=== PATIENT | female | born 1990 | race American Indian/Alaskan Native ===

== ENCOUNTER 2017-01-19 21:20 | Emergency (ER) | payer BC, OTHER ==
[2017-01-19 21:55] VITALS: TEMP 98.7; BMI 30.4
--- NOTE | 2017-01-19 22:26 | ED PDOC ---
Arrival/HPI - General Chief Complaint: Abdominal Pain Time Seen by Provider: 01/19/17 22:14 Historian: Patient - History of Present Illness Narrative History of Present Illness (Text): 01/19/17 22:25 Javier Sepulveda is a 26 year old female, P:1, who presents to the emergency department complaining of occasional lower abdominal discomfort for the past few days. Patient states she wanted to see if she could possible be . Patient states her last normal menstrual period was 1 month prior. Patient denies any nausea, vomiting, diarrhea, vaginal bleeding, or vaginal discharge. Patient reports some urinary frequency and denies any discomfort at this time. Time/Duration: Other (few days) Symptom Onset: Gradual Symptom Course: Intermittent Severity Level: Mild Activities at Onset: Rest, Light Context: Home Past Medical History - Provider Review Nursing Documentation Reviewed: Yes - Infectious Disease Hx of Infectious Diseases: None - Tetanus Immunization Tetanus Immunization: Unknown - Psychiatric Hx Substance Use: No - Anesthesia Hx Anesthesia: No Family/Social History - Physician Review Nursing Documentation Reviewed: Yes Family/Social History: No Known Family HX Smoking Status: Never Smoked Hx Alcohol Use: No Hx Substance Use: No Allergies/Home Meds Allergies/Adverse Reactions: Allergies No Known Allergies Allergy (Verified 01/19/17 21:57) Home Medications: Home Meds Medication Instructions Recorded Confirmed RX: Unobtainable 10/31/16 10/31/16 Review of Systems - Physician Review All systems were reviewed & negative as marked: Yes - Review of Systems Constitutional: Normal. absent: Fevers Eyes: Normal ENT: Normal Respiratory: Normal. absent: SOB, Cough Cardiovascular: Normal. absent: Chest Pain Gastrointestinal: Abdominal Pain. absent: Diarrhea, Nausea, Vomiting Genitourinary Female: Frequency. absent: Dysuria, Hematuria, Urine Output Changes Musculoskeletal: Normal. absent: Back Pain, Neck Pain Skin: Normal. absent: Rash Neurological: Normal. absent: Headache, Dizziness Endocrine: Normal Hemo/Lymphatic: Normal Psychiatric: Normal Physical Exam Vital Signs Reviewed: Yes Vital Signs Temp Pulse Resp BP Pulse Ox 01/20/17 01:21 64 16 125/91 H 99 01/19/17 23:11 68 20 117/76 100 01/19/17 21:55 98.7 F 72 18 133/85 100 Temperature: Afebrile Blood Pressure: Normal Pulse: Regular Respiratory Rate: Normal Appearance: Positive for: Well-Appearing, Non-Toxic, Comfortable Pain Distress: None Mental Status: Positive for: Alert and Oriented X 3 - Systems Exam Head: Present: Atraumatic, Normocephalic Pupils: Present: PERRL Extroacular Muscles: Present: EOMI Conjunctiva: Present: Normal Mouth: Present: Moist Mucous Membranes Neck: Present: Normal Range of Motion Respiratory/Chest: Present: Clear to Auscultation, Good Air Exchange. No: Respiratory Distress, Accessory Muscle Use Cardiovascular: Present: Regular Rate and Rhythm, Normal S1, S2. No: Murmurs Abdomen: Present: Normal Bowel Sounds. No: Tenderness, Distention, Peritoneal Signs Back: Present: Normal Inspection Upper Extremity: Present: Normal Inspection. No: Cyanosis, Edema Lower Extremity: Present: Normal Inspection. No: Edema Neurological: Present: GCS=15, CN II-XII Intact, Speech Normal Skin: Present: Warm, Dry, Normal Color. No: Rashes Psychiatric: Present: Alert, Oriented x 3, Normal Insight, Normal Concentration Medical Decision Making ED Course and Treatment: 01/19/17 22:25 Impression: 26 year old female complaining of occasional abdominal discomfort for the past few days. Differential Diagnosis included but are not limited to: vs. UTI Plan: -- Transvaginal US -- Labs, blood type and screen -- Urinalysis -- Reassess and disposition Prior Visits: Notes and results from previous visits were reviewed. Progress Notes: 01/20/17 02:21 Reviewed sono, Transvaginal US shows: 1. No intrauterine gestation. DDX: Early IUP, missed , ectopic . 2. LEFT adnexal lesion, indeterminate. Ectopic not excluded. 3. Incidental/non-acute findings are described above. 01/20/17 02:34 Case were discussed with Dr. Skinny Wood, [employer], including results of US. Pt in early stages of , findings may represents corpus luteal cyst. Pt too early in to determine if IUP or possibility of early ectopic. Recommends pt f/u with her doctor for serial Beta-HCGs and US at later date. This was discussed at length with pt, who understands in full. Pt is currently asymptomatic, she will follow up as instructed this week. States she will her OBGYN this week. Pt advised to return to the [facility] emergency department if any recurrent pain, vaginal bleeding, or new concerning symptoms develop. - Lab Interpretations Lab Results: 01/19/17 22:45 01/19/17 22:45 Lab Results 01/19/17 22:50: Blood Type O POSITIVE, Antibody Screen Negative, BBK History Checked No verified bt 01/19/17 22:45: WBC 8.0, RBC 3.71, Hgb 11.9 L, Hct 35.4 L, MCV 95.4, MCH 32.1, MCHC 33.6, RDW 13.0, Plt Count 223, MPV 8.8 01/19/17 22:45: Beta HCG, Quant 186.03 H 01/19/17 22:45: Sodium 141, Potassium 3.9, Chloride 105, Carbon Dioxide 28, Anion Gap 12, BUN 12, Creatinine 0.6, Est GFR ( Amer) > 60, Est GFR (Non- Af Amer) > 60, Random Glucose 83, Calcium 9.2, Total Bilirubin 0.5, AST 23, ALT 38, Alkaline Phosphatase 56, Total Protein 7.1, Albumin 4.1, Globulin 3.0, Albumin/Globulin Ratio 1.4 01/19/17 22:45: PT 10.8, INR 1.00, APTT 27.3 01/19/17 22:20: Urine Color Yellow, Urine Appearance Clear, Urine pH 6.5, Ur Specific [place] 1.025, Urine Protein Negative, Urine Glucose (UA) Negative, Urine Ketones Trace H, Urine Blood Negative, Urine Nitrate Negative, Urine Bilirubin Negative, Urine Urobilinogen 1.0 H, Ur Leukocyte Esterase Negative 01/19/17 11:55: Blood Type Confirm O POSITIVE I have reviewed the lab results: Yes - RAD Interpretation Narrative RAD Interpretations (Text): Transvaginal US shows: Gestation: No intrauterine gestational sac. Uterus/cervix: Endometrium: 0.6 cm in thickness. Small fluid within endometrial canal. Closed cervix. Ovaries: Normal ovaries. 1.0 x 1.0 x 1.2 cm anechoic structure with echogenic rim within LEFT adnexal region. Free fluid: Small free fluid within pelvis. IMPRESSION: 1. No intrauterine gestation. DDX: Early IUP, missed , ectopic . 2. LEFT adnexal lesion, indeterminate. Ectopic not excluded. 3. Incidental/non-acute findings are described above. Radiology Orders: 01/19/17 22:30 OB TRANSVAGINAL [US] Stat Technical Training Instructor: Radiologist - EKG Interpretation Interpreted by ED Physician: Yes Type: 12 lead EKG - Scribe Statement The provider has reviewed the documentation as recorded by the Ning Zelaya Provider Attestation: All medical record entries made by the Obiibhoney were at my direction and personally dictated by me. I have reviewed the chart and agree that the record accurately reflects my personal performance of the history, physical exam, medical decision making, and the department course for this patient. I have also personally directed, reviewed, and agree with the discharge instructions and disposition. Disposition/Present on Arrival - Present on Arrival Any Indicators Present on Arrival: No History of DVT/PE: No History of Uncontrolled Diabetes: No Urinary Catheter: No History of Decub. Ulcer: No History Surgical Site Infection Following: None - Disposition Have Diagnosis and Disposition been Completed?: Yes Diagnosis: Early stage of , Abdominal pain during Disposition: HOME/ ROUTINE Disposition Time: 02:40 Patient Plan: Discharge Patient Problems: Current Active Problems Problem Status Onset Abdominal pain during Acute Early stage of Acute Condition: GOOD Additional Instructions: Follow up with your triage specialist this week to undergo follow up testing as instructed.If any recurrent severe pain to return to the emergency room
[2017-01-19 22:39] LABS: PH,URINE 6.5 (4.7-8.0); URINE APPEARANCE CLEAR (CLEAR); URINE BILIRUBIN NEGATIVE (NEGATIVE); URINE BLOOD NEGATIVE (NEGATIVE); URINE COLOR YELLOW (YELLOW); URINE GLUCOSE (UA) NEGATIVE (NEGATIVE); URINE KETONE TRACE mg/dL (NEGATIVE); URINE LEUKOCYTE ESTERASE NEGATIVE Leu/uL (NEGATIVE); URINE PROTEIN NEGATIVE mg/dL (<30 mg/dL)
[2017-01-19 23:03] LABS: HEMATOCRIT 35.4 % (36.0-48.0); MEAN CELL VOLUME 95.4 fL (80.0-105.0); MEAN CORPUSCULAR HEMOGLOBIN 32.1 pg (25.0-35.0); MEAN CORPUSCULAR HGB CONC 33.6 g/dl (31.0-37.0); MEAN PLATELET VOLUME 8.8 fl (7.0-11.0)
[2017-01-19 23:09] LABS: ALB/GLOB RATIO 1.4 (1.1-1.8); ALKALINE PHOSPHATASE 56 U/L (38-133); ALT/SGPT 38 U/L (7-56); AST/SGOT 23 U/L (15-39); BILIRUBIN,TOTAL 0.5 mg/dL (0.2-1.3); BLOOD UREA NITROGEN 12 mg/dL (7-21); CALCIUM 9.2 mg/dL (8.4-10.5); CARBON DIOXIDE 28 mmol/L (21-33); CHLORIDE 105 mmol/L (98-107); GFR AFRICAN-AMERICAN > 60; GLUCOSE,RANDOM 83 mg/dL (70-110); POTASSIUM 3.9 mmol/L (3.6-5.0); SODIUM 141 mmol/L (132-148); TOTAL PROTEIN 7.1 g/dL (5.8-8.3)
[2017-01-19 23:10] LABS: PARTIAL THROMBOPLASTIN TIME 27.3 Seconds (23.7-30.8)
[2017-01-20 01:22] VITALS: RESP 16
--- NOTE | 2017-01-20 02:05 | US ---
EXAM: US First Trimester, Transabdominal CLINICAL HISTORY: 26 years old, female; Pain; Other: Llq; Gestational age or lmp: 11/15/2016; TECHNIQUE: Real-time transabdominal obstetrical ultrasound of the maternal pelvis and a first trimester with image documentation. COMPARISON: No relevant prior studies available. FINDINGS: Gestation: No intrauterine gestational sac. Uterus/cervix: Endometrium: 0.6 cm in thickness. Small fluid within endometrial canal. Closed cervix. Ovaries: Normal ovaries. 1.0 x 1.0 x 1.2 cm anechoic structure with echogenic rim within LEFT adnexal region. Free fluid: Small free fluid within pelvis. IMPRESSION: 1. No intrauterine gestation. DDX: Early IUP, missed , ectopic . 2. LEFT adnexal lesion, indeterminate. Ectopic not excluded. 3. Incidental/non-acute findings are described above. EXAM: US , Transvaginal CLINICAL HISTORY: 26 years old, female; Pain; Other: Llq; Gestational age or lmp: 11/15/2016; TECHNIQUE: Real-time transvaginal obstetrical ultrasound of the maternal pelvis and a first trimester with image documentation. Transvaginal imaging was used for better evaluation of the fetus and adnexa. COMPARISON: No relevant prior studies available. FINDINGS: Gestation: No intrauterine gestational sac. Uterus/cervix: Endometrium: 0.6 cm in thickness. Small fluid within endometrial canal. Closed cervix. Ovaries: Normal ovaries. 1.0 x 1.0 x 1.2 cm anechoic structure with echogenic rim within LEFT adnexal region. Free fluid: Small free fluid within pelvis.
[2017-01-20 02:51] VITALS: BP 116/74; PULSE 73; O2SAT 100
== END 2017-01-20 02:51 | disposition home or self-care (01) ==
LOC: ED 21:20
DX: O26.891 Other specified pregnancy related conditions, first trimester (principal); Z3A.00 Weeks of gestation of pregnancy not specified

== ENCOUNTER 2017-01-31 11:39 | Emergency (ER) | payer BC, OTHER ==
[2017-01-31 11:39] VITALS: BMI 30.4
[2017-01-31 12:08] VITALS: TEMP 98.3; O2SAT 97
[2017-01-31 12:28] VITALS: RESP 18
[2017-01-31] MEDS ORDERED: Sodium Chloride 0.9% 1,000 ML IV STA (12:31)
[2017-01-31 13:10] LABS: PH,URINE 7.5 (4.7-8.0); URINE APPEARANCE CLEAR (CLEAR); URINE BILIRUBIN NEGATIVE (NEGATIVE); URINE BLOOD NEGATIVE (NEGATIVE); URINE COLOR YELLOW (YELLOW); URINE GLUCOSE (UA) NEGATIVE (NEGATIVE); URINE KETONE NEGATIVE (NEGATIVE); URINE LEUKOCYTE ESTERASE NEGATIVE Leu/uL (NEGATIVE); URINE PROTEIN NEGATIVE mg/dL (<30 mg/dL)
[2017-01-31 13:15] LABS: ADD MANUAL DIFF? NO
[2017-01-31 13:20] LABS: BASO # 0.02 K/mm3 (0.0-2.0); BASO % 0.3 % (0.0-3.0); EOS # 0.1 (0.0-0.7); EOS % 0.9 % (1.5-5.0); GRAN # 3.97 (1.4-6.5); GRAN % 62.2 % (50.0-68.0); HEMATOCRIT 37.3 % (36.0-48.0); LYMPH # 1.9 (1.2-3.4); MEAN CELL VOLUME 94.7 fL (80.0-105.0); MEAN CORPUSCULAR HEMOGLOBIN 32.2 pg (25.0-35.0); MEAN PLATELET VOLUME 9.3 fl (7.0-11.0); MONO # 0.4 (0.1-0.6); MONO % 6.6 % (1.0-6.0); PLATELET COUNT 210 10^3/uL (120.0-450.0); RED CELL DISTRIBUTION WIDTH 12.6 % (11.5-14.5); WHITE BLOOD COUNT 6.4 10^3/ul (4.5-11.0)
--- NOTE | 2017-01-31 14:00 | ED PDOC ---
Arrival/HPI - General Chief Complaint: Abdominal Pain Time Seen by Provider: 01/31/17 12:31 Historian: Patient - History of Present Illness Narrative History of Present Illness (Text): 01/31/17 13:56 This is a 26Y F with no significant PMH came in for nausea and "feels as if she is ". Patient reports her LMP was 4/8. She found out she was and had a D&C on January 08. She says she had unprotected sex on January 15, and with the same partner. She came to ED on January 19 and was found to have Hcg of 180. She says she followed up with her PMD last week who says her Hcg was 16. She says she is having cravings and has some nausea. She has not had her period yet. She denies abdominal pain, n/v/d, dysuria, hematuria, numbness/ tingling, vaginal discharge, bleeding, fever or chills. Time/Duration: > week Symptom Onset: Gradual Symptom Course: Unchanged Quality: Cramping Severity Level: 2 Activities at Onset: Rest Context: Home Past Medical History - Infectious Disease Hx of Infectious Diseases: None - Tetanus Immunization Tetanus Immunization: Unknown - Cardiac Hx Cardiac Disorders: No - Pulmonary Hx Respiratory Disorders: No - Neurological Hx Neurological Disorder: No - HEENT Hx HEENT Disorder: No - Renal Hx Renal Disorder: No - Endocrine/Metabolic Hx Endocrine Disorders: No - Hematological/Oncological Hx Blood Disorders: No - Integumentary Hx Dermatological Disorder: No - Musculoskeletal/Rheumatological Hx Musculoskeletal Disorders: No - Gastrointestinal Hx Gastrointestinal Disorders: No - Genitourinary/Gynecological Other/Comment: "HORMONE PROBLEM" - Psychiatric Hx Psychophysiologic Disorder: No Hx Substance Use: No - Anesthesia Hx Anesthesia: No Family/Social History Family/Social History: No Known Family HX Smoking Status: Never Smoked Hx Alcohol Use: No Hx Substance Use: No Allergies/Home Meds Allergies/Adverse Reactions: Allergies No Known Allergies Allergy (Verified 01/31/17 12:02) Home Medications: Home Meds Medication Instructions Recorded Confirmed Unobtainable 10/31/16 01/31/17 Physical Exam Vital Signs Temp Pulse Resp BP Pulse Ox 01/31/17 14:52 79 18 113/68 97 01/31/17 13:49 89 18 111/69 97 01/31/17 12:28 98 H 18 109/68 97 01/31/17 12:02 98.3 F 98 H 16 109/68 97 Medical Decision Making ED Course and Treatment: 01/31/17 15:12 Impression: This is a 26Y F with PMh of D&C 3 weeks ago who came to ED for amenorrhea and symptoms. Hcg as outpatient 1 week ago was DDX: , ectopic Plan: -- CBC, CMP, U/A, Urine HCG, HCG quant --Reassess Prior Visits: Notes and results from previous visits were reviewed. Progress note: Patient feeling better. She would like to go home because she has to go to work. Urine Hcg negative. Will call with results of quant Hcg. Discharge Instructions: Re-evaluation. Patient feels better. Discussed results and plan with patient who expresses understanding. All questions answered and there is agreement with the plan to discharge home with instructions. Patient stable for discharge. Return if symptoms persist or worsen. Re-evaluation Time: 14:00 - Lab Interpretations Lab Results: 01/31/17 12:32 01/31/17 07:00 Lab Results 01/31/17 13:00: Urine Color Yellow, Urine Appearance Clear, Urine pH 7.5, Ur Specific [place] 1.020, Urine Protein Negative, Urine Glucose (UA) Negative, Urine Ketones Negative, Urine Blood Negative, Urine Nitrate Negative, Urine Bilirubin Negative, Urine Urobilinogen 1.0 H, Ur Leukocyte Esterase Negative, Urine HCG, Qual Negative 01/31/17 12:32: WBC 6.4, RBC 3.94, Hgb 12.7, Hct 37.3, MCV 94.7, MCH 32.2, MCHC 34.0, RDW 12.6, Plt Count 210, MPV 9.3, Gran % 62.2, Lymph % (Auto) 30.0, [place] % (Auto) 6.6 H, Eos % (Auto) 0.9 L, Baso % (Auto) 0.3, Gran # 3.97, Lymph # 1.9 , [place] # 0.4, Eos # 0.1, Baso # 0.02 01/31/17 07:00: Beta HCG, Quant 17.59 H 01/31/17 07:00: Sodium 138, Potassium 4.2, Chloride 103, Carbon Dioxide 29, Anion Gap 10, BUN 10, Creatinine 0.7, Est GFR ( Amer) > 60, Est GFR (Non- Af Amer) > 60, Random Glucose 81, Calcium 9.4, Total Bilirubin 0.5, AST 33, ALT 38, Alkaline Phosphatase 68, Total Protein 7.4, Albumin 4.4, Globulin 3.0, Albumin/Globulin Ratio 1.5, Lipase 51 I have reviewed the lab results: Yes Interpretation: All labs normal - Medication Orders Current Medication Orders: Discontinued Medications Sodium Chloride (Sodium Chloride 0.9%) 1,000 mls @ 1,000 mls/hr IV .Q1H STA Stop: 01/31/17 13:30 Last Admin: 01/31/17 14:27 Dose: Not Given Non-Admin Reason: Patient Refused Disposition/Present on Arrival - Present on Arrival Any Indicators Present on Arrival: No History of DVT/PE: No History of Uncontrolled Diabetes: No Urinary Catheter: No History of Decub. Ulcer: No History Surgical Site Infection Following: None - Disposition Have Diagnosis and Disposition been Completed?: Yes Diagnosis: Amenorrhea Disposition: HOME/ ROUTINE Disposition Time: 14:30 Patient Plan: Discharge Condition: GOOD Discharge Instructions (ExitCare): Amenorrhea (GEN) Print Language: ESTONIAN Additional Instructions: Derick, thank you for letting us take care of you today. Your provider was Dr. Rashid. You were treated for amenorrhea. The emergency medical care you received today was directed at your acute symptoms. If you were prescribed any medication, please fill it and take as directed. It may take several days for your symptoms to resolve. Return to the Emergency Department if your symptoms worsen, do not improve, or if you have any other problems. Please contact your doctor or call one of the physicians/clinics you have been referred to that are listed on the Patient Visit Information form that is included in your discharge packet. Bring any paperwork you were given at discharge with you along with any medications you are taking to your follow up visit. Our treatment cannot replace ongoing medical care by a primary care provider (PCP) outside of the emergency department. Thank you for allowing the [facility] team to be part of your care today. Referrals: Leann Wing MD [Primary Care Provider] - Follow up with primary
[2017-01-31 14:19] LABS: ALB/GLOB RATIO 1.5 (1.1-1.8); ALKALINE PHOSPHATASE 68 U/L (38-133); ALT/SGPT 38 U/L (7-56); AST/SGOT 33 U/L (15-39); BILIRUBIN,TOTAL 0.5 mg/dL (0.2-1.3); BLOOD UREA NITROGEN 10 mg/dL (7-21); CALCIUM 9.4 mg/dL (8.4-10.5); CARBON DIOXIDE 29 mmol/L (21-33); CHLORIDE 103 mmol/L (95-110); GFR AFRICAN-AMERICAN > 60; GLUCOSE,RANDOM 81 mg/dL (70-110); LIPASE 51 U/L (23-300); POTASSIUM 4.2 mmol/L (3.6-5.0); SODIUM 138 mmol/L (132-148); TOTAL PROTEIN 7.4 g/dL (5.8-8.3)
[2017-01-31 14:52] VITALS: BP 113/68; PULSE 79
== END 2017-01-31 15:01 | disposition home or self-care (01) ==
LOC: ED 11:39
DX: N91.2 Amenorrhea, unspecified (principal)

== ENCOUNTER 2017-03-01 21:36 | Emergency (ER) | payer BC, OTHER ==
[2017-03-01 22:23] VITALS: BMI 29.0
[2017-03-01 22:25] VITALS: BP 113/77; PULSE 63; RESP 16; TEMP 98.5; O2SAT 98
[2017-03-01] MEDS ORDERED: cefTRIAXone (Rocephin) 250 mg Inj IM STA (22:39)
--- NOTE | 2017-03-01 22:47 | ED PDOC ---
Arrival/HPI - General Historian: Patient - History of Present Illness Time/Duration: Other Symptom Onset: Other Context: Home - General Chief Complaint: Female Genitourinary Time Seen by Provider: 03/01/17 21:51 - History of Present Illness Narrative History of Present Illness (Text): 03/01/17 22:44 26 yo female with no significant PMH presents to ED to STD check. Patient states that she recently discovered that her former partner had an STD and wishes to be checked. She also request HIV testing. She states she was only sexual active with 1 partner. Patient denies vaginal discharge, pain, ulcers, or sores. She denies fevers, chill, chest pain, SOB, abd pain, n/v/d/c, urinary symptoms. Patient expresses desire for prophylactic treatment. PMD: does not recall name (Clover Fan) Past Medical History - Provider Review Nursing Documentation Reviewed: Yes - Infectious Disease Hx of Infectious Diseases: None - Tetanus Immunization Tetanus Immunization: Unknown - Cardiac Hx Cardiac Disorders: No - Pulmonary Hx Respiratory Disorders: No - Neurological Hx Neurological Disorder: No - HEENT Hx HEENT Disorder: No - Renal Hx Renal Disorder: No - Endocrine/Metabolic Hx Endocrine Disorders: No - Hematological/Oncological Hx Blood Disorders: No - Integumentary Hx Dermatological Disorder: No - Musculoskeletal/Rheumatological Hx Musculoskeletal Disorders: No - Gastrointestinal Hx Gastrointestinal Disorders: No - Genitourinary/Gynecological Other/Comment: "HORMONE PROBLEM" - Psychiatric Hx Psychophysiologic Disorder: No Hx Substance Use: No - Anesthesia Hx Anesthesia: No Family/Social History - Physician Review Nursing Documentation Reviewed: Yes Family/Social History: No Known Family HX Smoking Status: Never Smoked Hx Alcohol Use: No Hx Substance Use: No Allergies/Home Meds Allergies/Adverse Reactions: Allergies No Known Allergies Allergy (Verified 01/31/17 12:02) Home Medications: Home Meds Medication Instructions Recorded Confirmed Unobtainable 10/31/16 01/31/17 Review of Systems - Review of Systems Constitutional: Normal. absent: Fatigue, Fevers Eyes: Normal. absent: Vision Changes ENT: Normal. absent: Sore Throat, Rhinorrhea, Sinus Congestion Respiratory: Normal. absent: SOB, Cough, Wheezing Cardiovascular: Normal. absent: Chest Pain, Calf Pain, Syncope Gastrointestinal: Normal. absent: Abdominal Pain, Constipation, Diarrhea, Nausea, Vomiting Genitourinary Female: Normal. absent: Dysuria, Frequency, Hematuria, Vaginal Bleeding, Vaginal Discharge Musculoskeletal: Normal. absent: Arthralgias, Myalgias Skin: Normal. absent: Rash, Pruritis, Laceration, Ulcer Neurological: Normal. absent: Headache, Dizziness, Focal Weakness Endocrine: Normal. absent: Diaphoresis, Polyuria, Polydipsia Hemo/Lymphatic: Normal. absent: Easy Bleeding, Easy Bruising Psychiatric: Normal Physical Exam - Systems Exam Head: Present: Atraumatic, Normocephalic Pupils: Present: PERRL Extroacular Muscles: Present: EOMI Conjunctiva: Present: Normal Mouth: Present: Moist Mucous Membranes Neck: Present: Normal Range of Motion Respiratory/Chest: Present: Clear to Auscultation, Good Air Exchange. No: Respiratory Distress, Accessory Muscle Use, Wheezes, Rhonchi, Tachypneic Cardiovascular: Present: Regular Rate and Rhythm, Normal S1, S2. No: Murmurs, Tachycardic, Bradycardic Abdomen: Present: Normal Bowel Sounds. No: Tenderness, Distention, Peritoneal Signs Back: Present: Normal Inspection Upper Extremity: Present: Normal Inspection. No: Cyanosis, Edema, Swelling Lower Extremity: Present: Normal Inspection. No: Edema, CALF TENDERNESS, Tenderness, Swelling Neurological: Present: GCS=15, CN II-XII Intact, Speech Normal, Motor Func Grossly Intact Skin: Present: Warm, Dry, Normal Color. No: Rashes Psychiatric: Present: Alert, Oriented x 3, Normal Insight, Normal Concentration Vital Signs Temp Pulse Resp BP Pulse Ox 03/01/17 22:24 98.5 F 63 16 113/77 98 Medical Decision Making ED Course and Treatment: 03/02/17 00:25 Patient seen with resident Came up with treatment and disposition plan with resident (Ar Poole) 03/01/17 22:51 Impression: 26 yo female with no significant PMH presented to ED for STD evaluation. Plan - GC/ chlamydia - HIV - prophylaxis azithromycin and Rocephin Progress: - Plan was discussed with patient she understands. Patient is instructed to follow up with test results in 1 week thought medical records, she expressed understanding. All questions answered. She is stable for discharge. (Clover Fan) - Medication Orders Current Medication Orders: Discontinued Medications Azithromycin (Zithromax) 1,000 mg PO STAT STA PRN Reason: Protocol Stop: 03/01/17 22:40 Last Admin: 03/01/17 22:54 Dose: 1,000 mg Ceftriaxone Sodium (Rocephin) 250 mg IM STAT STA PRN Reason: Protocol Stop: 03/01/17 22:40 Last Admin: 03/01/17 22:54 Dose: 250 mg Disposition/Present on Arrival - Present on Arrival Any Indicators Present on Arrival: No History of DVT/PE: No History of Uncontrolled Diabetes: No Urinary Catheter: No History of Decub. Ulcer: No History Surgical Site Infection Following: None - Disposition Have Diagnosis and Disposition been Completed?: Yes Disposition Time: 22:50 Patient Plan: Discharge - Disposition Diagnosis: Screening for STD (sexually transmitted disease) Disposition: HOME/ ROUTINE Condition: GOOD Discharge Instructions (ExitCare): Sexually Transmitted Diseases (ED) Additional Instructions: Javier Sepulveda, thank you for letting us take care of you today. Your provider was Dr. Fan and Dr. Poole. You were treated for STD screening. The emergency medical care you received today was directed at your acute symptoms. If you were prescribed any medication, please fill it and take as directed. It may take several days for your symptoms to resolve. Return to the Emergency Department if your symptoms worsen, do not improve, or if you have any other problems. Please contact your doctor or call one of the physicians/clinics you have been referred to that are listed on the Patient Visit Information form that is included in your discharge packet. Bring any paperwork you were given at discharge with you along with any medications you are taking to your follow up visit. Our treatment cannot replace ongoing medical care by a primary care provider (PCP) outside of the emergency department. Thank you for allowing the [facility] team to be part of your care today. If you had an STI test: It will take 48 hours for the results. Please call after 1 week if you have not heard back. Referrals: Mamta Brennan, [Primary Care Provider] - Follow up with primary
== END 2017-03-01 23:13 | disposition home or self-care (01) ==
LOC: ED 21:36
DX: Z11.3 Encounter for screening for infections with a predominantly sexual mode of transmission (principal)
CPT/HCPCS: 87491; 87591; 96372; 99283; J0696